=== PATIENT | female | born 1985 | race American Indian/Alaskan Native ===

== ENCOUNTER 2017-06-01 17:59 | Outpatient (CLI) | payer OTHER ==
[2017-06-01 18:43] VITALS: BP 133/84
== END 2017-06-01 18:50 | disposition home or self-care (01) ==
LOC: TRG 17:59
PROVIDERS: ATTEND Obstetrics & Gynecology
DX: Z34.93 Encounter for supervision of normal pregnancy, unspecified, third trimester (principal); Z3A.31 31 weeks gestation of pregnancy
CPT/HCPCS: 59025

== ENCOUNTER 2017-07-21 19:32 | Inpatient (IN) | payer OTHER ==
[2017-07-21] MEDS ORDERED: XYLOCAINE 2% INFILTRATI ONE (20:42)
[2017-07-21] MEDS ORDERED: ZOFRAN IV PRN (20:42)
[2017-07-21] MEDS ORDERED: BRETHINE SUB-Q PRN (20:42)
[2017-07-21] MEDS ORDERED: BRETHINE IVP PRN (20:42)
[2017-07-21] MEDS ORDERED: PHENERGAN PO PRN (20:42)
[2017-07-21] MEDS ORDERED: MINERAL OIL PO PRN (20:42)
[2017-07-21] MEDS ORDERED: STADOL IV PRN (20:42)
[2017-07-21] MEDS ORDERED: ePHEDrine SULFATE IV PRN (20:42)
--- NOTE | 2017-07-21 20:42 | History and Physical Report ---
History of Present Illness Date of examination: 07/21/17 Date of admission: 07/21/17 19:32 Chief complaint: Induction of labor History of present illness: Pt is a 31yo BF EDC 08/01/17; EGA 38 3/7 weeks presents from [facility] for induction of labor due to Oligohydramnios. She was also followed by [facility] for Morbid Obesity and Uterine fibroids, and received care with [facility] since 16 weeks. records are available and GBS is Negative. Past History Past Medical History: other (Morbid Obesity) Past Surgical History: no surgical history [employer] History: fibroids Family/Genetic History: diabetes, hypertension, cancer Social history: no significant social history, - Obstetrical History Expected Date of Delivery: 08/01/17 Actual Gestation: 38 Week(s) 3 Day(s) : 2 Medications and Allergies Allergies Allergy/AdvReac Type Severity Reaction Status Date / Time No Known Allergies Allergy Verified 05/02/16 07:05 Home Medications Medication Instructions Recorded Confirmed Last Taken Type Pnv,Calcium 72/Iron/Folic Acid 1 each PO DAILY 05/04/16 06/01/17 1 Day Ago History [Preplus Ca-Fe 27 mg-FA 1 mg Tb] ~05/03/16 Review of Systems All systems: negative - Physical Exam Breasts: Positive: deferred Cardiovascular: Regular rate Lungs: Positive: Clear to auscultation Abdomen: Positive: normal appearance Genitourinary (Female): Positive: normal external genitalia Uterus: Positive: enlarged Extremities: Positive: normal - Obstetrical FHR: category 1 Uterine Contraction Monitor Mode: External Cervical Dilatation: 1 Cervical Effacement Percentage: 50 station: -3 Uterine Contraction Pattern: Absent Results All other labs normal. Ultrasound: report reviewed Assessment and Plan - Patient Problems (1) 38 weeks gestation of Onset Date: 07/21/17 Current Visit: Yes Status: Acute Plan to address problem: A: IUP @ 38 3/7 weeks Oligohydramnios Morbid Obesity Uterine fibroids P: Admit to L&D for cervidel/pitocin induction of labor (2) Morbid obesity Onset Date: 07/21/17 Current Visit: Yes Status: Acute (3) Oligohydramnios without rupture of membranes in third trimester Onset Date: 07/21/17 Current Visit: Yes Status: Acute Qualifiers: Fetus number: single or unspecified fetus Qualified Code(s): O41.03X0 - Oligohydramnios, third trimester, not applicable or unspecified
[2017-07-21] MEDS ORDERED: PITOCin/NS 30 UNIT/500ML 30 UNITS/500 ML BAG IV SCH (21:00)
[2017-07-21] MEDS ORDERED: PITOCin/NS 20 UNIT/1000ML DRIP 20 UNITS/1,000 ML BAG IV SCH (21:00)
[2017-07-21] MEDS ORDERED: CERVIDIL VG ONE ×2 (21:36→21:50)
[2017-07-21 21:41] LABS: Hematocrit 32.5 % (30.3-42.9); Hemoglobin 10.6 gm/dl (10.1-14.3); Mean Corpuscular HGB Conc 33 % (30-34); Mean Corpuscular Hemoglobin 28 pg (28-32); Mean Corpuscular Volume 84 fl (79-97); Platelet Count 209 K/mm3 (140-440); Red Blood Count 3.85 M/mm3 (3.65-5.03); Red Cell Distribution Width 16.3 % (13.2-15.2)
[2017-07-21 22:00] LABS: Alanine Aminotransferase 8 units/L (7-56); Albumin 3.6 g/dL (3.9-5); BUN/Creatinine Ratio 15; Blood Urea Nitrogen 6 mg/dL (7-17); Calcium 8.8 mg/dL (8.4-10.2); Hemolysis Index 27
--- NOTE | 2017-07-22 09:23 | Progress Note ---
Assessment and Plan - Patient Problems (1) 38 weeks gestation of Onset Date: 07/21/17 Current Visit: Yes Status: Acute Plan to address problem: A: IUP @ 38 3/7 weeks Oligohydramnios Morbid Obesity Uterine fibroids P: Continue with cervidel/pitocin induction of labor (2) Morbid obesity Onset Date: 07/21/17 Current Visit: Yes Status: Acute (3) Oligohydramnios without rupture of membranes in third trimester Onset Date: 07/21/17 Current Visit: Yes Status: Acute Qualifiers: Fetus number: single or unspecified fetus Qualified Code(s): O41.03X0 - Oligohydramnios, third trimester, not applicable or unspecified Subjective - Subjective Date of service: 07/22/17 Principal diagnosis: IUP @ 38 4/7 weeks; Oligohydramnios Interval history: Pt is a 31yo BF EDC 08/01/17; EGA 38 4/7 weeks presents from [facility] for induction of labor due to Oligohydramnios. She received cervidil last night, and is currently having irregular contractions. Patient reports: movement normal, contractions, no new complaints, no loss of fluid, no vaginal bleeding Objective - Exam Abdomen: Present: normal appearance, soft FHR: category 1 Uterine Contraction Monitor Mode: External Uterine Contraction Pattern: Irregular - Labs Labs: Abnormal Labs 07/21/17 07/21/17 21:30 21:30 RDW 16.3 H Carbon Dioxide 20 L BUN 6 L Creatinine 0.4 L Glucose 104 H Alkaline Phosphatase 140 H Albumin 3.6 L Laboratory Results - last 24 hr 07/21/17 07/21/17 07/21/17 21:30 21:30 21:30 WBC 8.5 RBC 3.85 Hgb 10.6 Hct 32.5 MCV 84 MCH 28 MCHC 33 RDW 16.3 H Plt Count 209 Sodium 137 Potassium 4.1 Chloride 101.0 Carbon Dioxide 20 L Anion Gap 20 BUN 6 L Creatinine 0.4 L Estimated GFR > 60 BUN/Creatinine Ratio 15 Glucose 104 H Calcium 8.8 Total Bilirubin 0.20 AST 13 ALT 8 Alkaline Phosphatase 140 H Total Protein 6.8 Albumin 3.6 L Albumin/Globulin Ratio 1.1 Blood Type A POSITIVE Antibody Screen Negative
[2017-07-22] MEDS: LACTATED RINGERS 1,000 ML IV SCH ×2 (13:37→23:44)
[2017-07-22] MEDS: PITOCin/NS 30 UNIT/500ML 30 UNITS/500 ML BAG IV SCH (13:40)
--- NOTE | 2017-07-22 18:28 | Progress Note ---
Assessment and Plan - Patient Problems (1) 38 weeks gestation of Onset Date: 07/21/17 Current Visit: Yes Status: Acute Plan to address problem: A: IUP @ 38 3/7 weeks Oligohydramnios Morbid Obesity Uterine fibroids P: Will discontinue pitocin and place another cervidil tonight. (2) Morbid obesity Onset Date: 07/21/17 Current Visit: Yes Status: Acute (3) Oligohydramnios without rupture of membranes in third trimester Onset Date: 07/21/17 Current Visit: Yes Status: Acute Qualifiers: Fetus number: single or unspecified fetus Qualified Code(s): O41.03X0 - Oligohydramnios, third trimester, not applicable or unspecified Subjective - Subjective Date of service: 07/22/17 Principal diagnosis: IUP @ 38 4/7 weeks; Oligohydramnios Interval history: Pt is a 31yo BF EDC 08/01/17; EGA 38 4/7 weeks presents from [facility] for induction of labor due to Oligohydramnios. She received cervidil followed by pitocin, and currently on 20mu/min and satya q 3-4 mins without cervical change. Patient reports: movement normal, contractions, no new complaints, no loss of fluid, no vaginal bleeding Objective - Exam FHR: category 1 Uterine Contraction Monitor Mode: External Uterine Contraction Pattern: Regular Uterine Tone Measurement Phase: Contraction Uterine Contraction Intensity: Mild - Labs Labs: Abnormal Labs 07/21/17 07/21/17 21:30 21:30 RDW 16.3 H Carbon Dioxide 20 L BUN 6 L Creatinine 0.4 L Glucose 104 H Alkaline Phosphatase 140 H Albumin 3.6 L Laboratory Results - last 24 hr 07/21/17 07/21/17 07/21/17 21:30 21:30 21:30 WBC 8.5 RBC 3.85 Hgb 10.6 Hct 32.5 MCV 84 MCH 28 MCHC 33 RDW 16.3 H Plt Count 209 Sodium 137 Potassium 4.1 Chloride 101.0 Carbon Dioxide 20 L Anion Gap 20 BUN 6 L Creatinine 0.4 L Estimated GFR > 60 BUN/Creatinine Ratio 15 Glucose 104 H Calcium 8.8 Total Bilirubin 0.20 AST 13 ALT 8 Alkaline Phosphatase 140 H Total Protein 6.8 Albumin 3.6 L Albumin/Globulin Ratio 1.1 RPR Nonreactive Blood Type Antibody Screen 07/21/17 21:30 WBC RBC Hgb Hct MCV MCH MCHC RDW Plt Count Sodium Potassium Chloride Carbon Dioxide Anion Gap BUN Creatinine Estimated GFR BUN/Creatinine Ratio Glucose Calcium Total Bilirubin AST ALT Alkaline Phosphatase Total Protein Albumin Albumin/Globulin Ratio RPR Blood Type A POSITIVE Antibody Screen Negative
[2017-07-22] MEDS ORDERED: CERVIDIL VG ONE (19:30)
[2017-07-22] MEDS ORDERED: NACL 0.9% 1000 ML 1,000 ML ONE (20:44)
--- NOTE | 2017-07-23 08:24 | Progress Note ---
Assessment and Plan - Patient Problems (1) 38 weeks gestation of Onset Date: 07/21/17 Current Visit: Yes Status: Acute Plan to address problem: A: IUP @ 38 5/7 weeks Oligohydramnios Morbid Obesity Uterine fibroids P: Will restart pitocin induction of labor. (2) Morbid obesity Onset Date: 07/21/17 Current Visit: Yes Status: Acute (3) Oligohydramnios without rupture of membranes in third trimester Onset Date: 07/21/17 Current Visit: Yes Status: Acute Qualifiers: Fetus number: single or unspecified fetus Qualified Code(s): O41.03X0 - Oligohydramnios, third trimester, not applicable or unspecified Subjective - Subjective Date of service: 07/23/17 Principal diagnosis: IUP @ 38 5/7 weeks; Oligohydramnios Interval history: Pt is a 31yo BF EDC 08/01/17; EGA 38 5/7 weeks presented from [facility] for induction of labor due to Oligohydramnios. She received cervidil followed by pitocin yesterday, and cervidil again last night and having rare contractions without cervical change. Patient reports: movement normal, contractions, no new complaints, no loss of fluid, no vaginal bleeding Objective - Vital Signs Vital Signs: Vital Signs - 12hr 07/23/17 07/23/17 00:05 07:18 Temperature 97.6 F 97.2 F L Respiratory 20 18 Rate - Exam Breasts: deferred Cardiovascular: Regular rate Lungs: Clear to auscultation Abdomen: Present: normal appearance, soft Uterus: Present: normal FHR: category 1 Uterine Contraction Monitor Mode: External Uterine Contraction Pattern: Absent - Labs Labs: Abnormal Labs 07/21/17 07/21/17 21:30 21:30 RDW 16.3 H Carbon Dioxide 20 L BUN 6 L Creatinine 0.4 L Glucose 104 H Alkaline Phosphatase 140 H Albumin 3.6 L Laboratory Results - last 24 hr 07/21/17 21:30 RPR Nonreactive
[2017-07-23] MEDS: PITOCin/NS 30 UNIT/500ML 30 UNITS/500 ML BAG IV SCH (09:51)
[2017-07-23] MEDS: LACTATED RINGERS 1,000 ML IV SCH (09:51)
[2017-07-23] MEDS: SUBLIMAZE IV PRN (14:17)
[2017-07-23] MEDS: NORMOSOL-R PH 7.4 1,000 ML IV SCH (18:16)
[2017-07-24] MEDS: NORMOSOL-R PH 7.4 1,000 ML IV SCH ×4 (04:19→20:46)
[2017-07-24] MEDS ORDERED: ANCEF IV SCH (06:00)
--- NOTE | 2017-07-24 10:55 | Progress Note ---
Assessment and Plan - Patient Problems (1) 38 weeks gestation of Onset Date: 07/21/17 Current Visit: Yes Status: Acute Plan to address problem: A: IUP @ 38 6/7 weeks Oligohydramnios Morbid Obesity Uterine fibroids P: Will continue with pitocin induction of labor. (2) Morbid obesity Onset Date: 07/21/17 Current Visit: Yes Status: Acute (3) Oligohydramnios without rupture of membranes in third trimester Onset Date: 07/21/17 Current Visit: Yes Status: Acute Qualifiers: Fetus number: single or unspecified fetus Qualified Code(s): O41.03X0 - Oligohydramnios, third trimester, not applicable or unspecified Subjective - Subjective Date of service: 07/24/17 Principal diagnosis: IUP @ 38 6/7 weeks; Oligohydramnios Interval history: Pt is a 31yo BF EDC 08/01/17; EGA 38 6/7 weeks presented from [facility] for induction of labor due to Oligohydramnios. She received cervidil followed by pitocin yesterday, and cervidil and pitocin again last night and having contractions q 4-5 mins on pitocin 20mu/min. Patient reports: movement normal, contractions, no new complaints, no loss of fluid, no vaginal bleeding Objective - Vital Signs Vital Signs: Vital Signs - 12hr 07/24/17 07/24/17 07/24/17 06:15 07:46 10:06 Temperature 97.1 F L 97.6 F 98.0 F Pulse Rate 99 H 96 H Respiratory 16 16 Rate Blood Pressure 134/73 115/57 [Right] - Exam Cardiovascular: Regular rate Lungs: Clear to auscultation Abdomen: Present: normal appearance, soft FHR: category 1 Uterine Contraction Monitor Mode: External Cervical Dilatation: 1.5 Cervical Effacement Percentage: 50 station: -3 Uterine Contraction Pattern: Regular Uterine Tone Measurement Phase: Contraction Uterine Contraction Intensity: Mild - Labs Labs: Abnormal Labs 07/21/17 07/21/17 21:30 21:30 RDW 16.3 H Carbon Dioxide 20 L BUN 6 L Creatinine 0.4 L Glucose 104 H Alkaline Phosphatase 140 H Albumin 3.6 L
[2017-07-24 11:28] LABS: Hematocrit 30.4 % (30.3-42.9); Mean Corpuscular HGB Conc 33 % (30-34); Mean Corpuscular Hemoglobin 28 pg (28-32); Mean Corpuscular Volume 84 fl (79-97); Platelet Count 189 K/mm3 (140-440)
[2017-07-24] MEDS: SUBLIMAZE IV PRN (12:46)
[2017-07-24] MEDS ORDERED: NARCAN 2 MG/2 ML IV PRN (15:01)
[2017-07-24] MEDS ORDERED: ePHEDrine SULFATE IV PRN (15:01)
--- NOTE | 2017-07-24 15:01 | Anesthesia Consultation ---
Anesthesia Consult and Med Hx Date of service: 07/24/17 - Airway Anesthetic Teeth Evaluation: Good ROM Head & Neck: Adequate Mental/Hyoid Distance: Adequate Mallampati Class: Class II Intubation Access Assessment: Probably Good - Pulmonary Hx Asthma: No COPD: No Hx Pneumonia: No - Cardiovascular System Hx Hypertension: No - Central Nervous System Hx Seizures: No Hx Psychiatric Problems: No - Endocrine Hx Renal Disease: No Hx End Stage Renal Disease: No Hx Hypothyroidism: No Hx Hyperthyroidism: No - Hematic Hx Anemia: No Hx Sickle Cell Disease: No - Other Systems Hx Alcohol Use: Yes Hx Obesity: Yes (morbid, BMI 48.6)
[2017-07-24] MEDS ORDERED: fentaNYL-BUPIV 2 MCG/ML-0.125% 200 MCG/100 ML BAG EPIDURAL SCH (16:00)
--- NOTE | 2017-07-24 16:08 | Progress Note ---
Assessment and Plan - Patient Problems (1) 38 weeks gestation of Onset Date: 07/21/17 Current Visit: Yes Status: Acute Plan to address problem: A: IUP @ 38 6/7 weeks Oligohydramnios Morbid Obesity Uterine fibroids P: Will continue with pitocin induction of labor. Proceed with epidural IUPC placed for amnioinfusion Expectant vaginal delivery (2) Morbid obesity Onset Date: 07/21/17 Current Visit: Yes Status: Acute (3) Oligohydramnios without rupture of membranes in third trimester Onset Date: 07/21/17 Current Visit: Yes Status: Acute Qualifiers: Fetus number: single or unspecified fetus Qualified Code(s): O41.03X0 - Oligohydramnios, third trimester, not applicable or unspecified Subjective - Subjective Date of service: 07/24/17 Principal diagnosis: IUP @ 38 6/7 weeks; Oligohydramnios Interval history: Pt is a 31yo BF EDC 08/01/17; EGA 38 6/7 weeks presented from [facility] for induction of labor due to Oligohydramnios. She received cervidil followed by pitocin yesterday, and cervidil and pitocin again last night and having contractions q 4-5 mins on pitocin 20mu/min. Pt now having variable decelerations. Patient reports: movement normal, contractions, no new complaints, no vaginal bleeding Objective - Vital Signs Vital Signs: Vital Signs - 12hr 07/24/17 07/24/17 07/24/17 06:15 06:19 07:39 Temperature 97.1 F L Pulse Rate 99 H 99 H 97 H Respiratory 16 Rate Blood Pressure 134/73 Blood Pressure 134/73 [Right] O2 Sat by Pulse 100 Oximetry 07/24/17 07/24/17 07/24/17 07:41 07:44 07:46 Temperature 97.6 F Pulse Rate 98 H 96 H 96 H Respiratory 16 Rate Blood Pressure 115/57 Blood Pressure 115/57 [Right] O2 Sat by Pulse 99 Oximetry 07/24/17 07/24/17 07/24/17 07:49 08:36 08:41 Temperature Pulse Rate 94 H 101 H 98 H Respiratory Rate Blood Pressure Blood Pressure [Right] O2 Sat by Pulse 98 98 98 Oximetry 07/24/17 07/24/17 07/24/17 08:46 09:00 09:05 Temperature Pulse Rate 92 H 89 88 Respiratory Rate Blood Pressure Blood Pressure [Right] O2 Sat by Pulse 99 100 99 Oximetry 07/24/17 07/24/17 07/24/17 09:10 09:15 09:20 Temperature Pulse Rate 91 H 98 H 95 H Respiratory Rate Blood Pressure Blood Pressure [Right] O2 Sat by Pulse 100 100 100 Oximetry 07/24/17 07/24/17 07/24/17 09:25 09:30 09:35 Temperature Pulse Rate 91 H 94 H 99 H Respiratory Rate Blood Pressure Blood Pressure [Right] O2 Sat by Pulse 99 98 98 Oximetry 07/24/17 07/24/17 07/24/17 09:40 09:45 09:50 Temperature Pulse Rate 95 H 95 H 93 H Respiratory Rate Blood Pressure Blood Pressure [Right] O2 Sat by Pulse 100 100 98 Oximetry 07/24/17 07/24/17 07/24/17 09:55 10:00 10:05 Temperature Pulse Rate 96 H 89 98 H Respiratory Rate Blood Pressure Blood Pressure [Right] O2 Sat by Pulse 99 100 98 Oximetry 07/24/17 07/24/17 07/24/17 10:06 10:10 10:15 Temperature 98.0 F Pulse Rate 96 H 88 Respiratory Rate Blood Pressure Blood Pressure [Right] O2 Sat by Pulse 99 100 Oximetry 07/24/17 07/24/17 07/24/17 10:19 10:20 10:25 Temperature Pulse Rate 55 L 94 H 96 H Respiratory Rate Blood Pressure Blood Pressure [Right] O2 Sat by Pulse 93 100 100 Oximetry 07/24/17 07/24/17 07/24/17 10:30 10:35 10:40 Temperature Pulse Rate 100 H 96 H 95 H Respiratory Rate Blood Pressure Blood Pressure [Right] O2 Sat by Pulse 100 100 100 Oximetry 07/24/17 07/24/17 07/24/17 10:45 10:56 11:01 Temperature Pulse Rate 105 H 98 H 92 H Respiratory Rate Blood Pressure Blood Pressure [Right] O2 Sat by Pulse 100 99 100 Oximetry 07/24/17 07/24/17 07/24/17 11:06 11:11 11:16 Temperature Pulse Rate 95 H 107 H 101 H Respiratory Rate Blood Pressure Blood Pressure [Right] O2 Sat by Pulse 99 100 100 Oximetry 03/09/18 03/09/18 03/09/18 11:18 11:21 11:26 Temperature Pulse Rate 101 H 95 H 96 H Respiratory Rate Blood Pressure Blood Pressure [Right] O2 Sat by Pulse 86 100 99 Oximetry 07/24/17 07/24/17 07/24/17 11:31 11:36 11:43 Temperature Pulse Rate 99 H 96 H 96 H Respiratory Rate Blood Pressure Blood Pressure [Right] O2 Sat by Pulse 100 97 100 Oximetry 07/24/17 07/24/17 07/24/17 11:45 11:48 11:51 Temperature 97.7 F Pulse Rate 100 H 101 H 97 H Respiratory 18 Rate Blood Pressure 138/85 Blood Pressure 138/85 [Right] O2 Sat by Pulse 100 Oximetry 07/24/17 07/24/17 07/24/17 11:53 11:58 12:18 Temperature Pulse Rate 100 H 108 H 99 H Respiratory Rate Blood Pressure Blood Pressure [Right] O2 Sat by Pulse 99 100 100 Oximetry 07/24/17 07/24/17 07/24/17 12:23 12:28 12:33 Temperature Pulse Rate 104 H 101 H 107 H Respiratory Rate Blood Pressure Blood Pressure [Right] O2 Sat by Pulse 99 100 99 Oximetry 07/24/17 07/24/17 07/24/17 12:37 12:38 12:43 Temperature Pulse Rate 100 H 105 H 100 H Respiratory Rate Blood Pressure Blood Pressure [Right] O2 Sat by Pulse 94 86 99 Oximetry 07/24/17 07/24/17 07/24/17 12:44 12:48 12:53 Temperature Pulse Rate 106 H 104 H 101 H Respiratory Rate Blood Pressure Blood Pressure [Right] O2 Sat by Pulse 94 100 99 Oximetry 07/24/17 07/24/17 07/24/17 12:58 13:00 13:03 Temperature Pulse Rate 115 H 107 H 106 H Respiratory Rate Blood Pressure Blood Pressure [Right] O2 Sat by Pulse 98 94 99 Oximetry 07/24/17 07/24/17 07/24/17 13:08 13:21 13:26 Temperature Pulse Rate 101 H 105 H 103 H Respiratory Rate Blood Pressure Blood Pressure [Right] O2 Sat by Pulse 99 99 100 Oximetry 07/24/17 07/24/17 07/24/17 13:31 13:34 13:36 Temperature Pulse Rate 102 H 99 H 105 H Respiratory Rate Blood Pressure Blood Pressure [Right] O2 Sat by Pulse 97 94 100 Oximetry 07/24/17 07/24/17 07/24/17 13:41 13:46 13:48 Temperature Pulse Rate 105 H 106 H 103 H Respiratory Rate Blood Pressure Blood Pressure [Right] O2 Sat by Pulse 95 96 94 Oximetry 07/24/17 07/24/17 07/24/17 13:51 13:54 13:56 Temperature Pulse Rate 104 H 103 H 110 H Respiratory Rate Blood Pressure Blood Pressure [Right] O2 Sat by Pulse 95 91 96 Oximetry 07/24/17 07/24/17 07/24/17 14:01 14:04 14:06 Temperature Pulse Rate 105 H 107 H 111 H Respiratory Rate Blood Pressure Blood Pressure [Right] O2 Sat by Pulse 100 90 100 Oximetry 07/24/17 07/24/17 07/24/17 14:11 14:25 14:30 Temperature 97.9 F Pulse Rate 106 H 104 H Respiratory Rate Blood Pressure Blood Pressure [Right] O2 Sat by Pulse 94 91 Oximetry 07/24/17 07/24/17 07/24/17 14:35 14:40 14:45 Temperature Pulse Rate 110 H 108 H 111 H Respiratory Rate Blood Pressure Blood Pressure [Right] O2 Sat by Pulse 96 100 98 Oximetry 07/24/17 07/24/17 07/24/17 14:50 14:53 14:55 Temperature Pulse Rate 118 H 119 H 120 H Respiratory Rate Blood Pressure Blood Pressure [Right] O2 Sat by Pulse 99 92 100 Oximetry 07/24/17 07/24/17 07/24/17 15:00 15:03 15:05 Temperature Pulse Rate 112 H 118 H 121 H Respiratory Rate Blood Pressure 131/62 Blood Pressure [Right] O2 Sat by Pulse 99 100 Oximetry 07/24/17 07/24/17 07/24/17 15:10 15:15 15:20 Temperature Pulse Rate 119 H 125 H 123 H Respiratory Rate Blood Pressure Blood Pressure [Right] O2 Sat by Pulse 94 99 99 Oximetry 07/24/17 07/24/17 07/24/17 15:21 15:23 15:25 Temperature Pulse Rate 116 H 116 H 115 H Respiratory Rate Blood Pressure 139/73 135/71 137/67 Blood Pressure [Right] O2 Sat by Pulse 99 Oximetry 07/24/17 07/24/17 07/24/17 15:27 15:29 15:30 Temperature Pulse Rate 112 H 114 H 115 H Respiratory Rate Blood Pressure 126/58 137/65 Blood Pressure [Right] O2 Sat by Pulse 100 Oximetry 07/24/17 07/24/17 07/24/17 15:31 15:34 15:36 Temperature Pulse Rate 113 H 118 H 122 H Respiratory Rate Blood Pressure 134/64 139/60 111/56 Blood Pressure [Right] O2 Sat by Pulse 100 Oximetry 07/24/17 07/24/17 07/24/17 15:37 15:39 15:41 Temperature Pulse Rate 115 H 118 H 114 H Respiratory Rate Blood Pressure 109/54 104/54 108/55 Blood Pressure [Right] O2 Sat by Pulse 100 Oximetry 07/24/17 07/24/17 07/24/17 15:43 15:46 15:51 Temperature Pulse Rate 120 H 119 H 120 H Respiratory Rate Blood Pressure 106/53 Blood Pressure [Right] O2 Sat by Pulse 100 99 Oximetry 07/24/17 07/24/17 07/24/17 15:56 16:01 16:06 Temperature Pulse Rate 116 H 133 H 116 H Respiratory Rate Blood Pressure 114/56 Blood Pressure [Right] O2 Sat by Pulse 100 100 100 Oximetry - Exam Uterine Contraction Monitor Mode: External Cervical Dilatation: 2.5 Cervical Effacement Percentage: 70 station: -2 Uterine Contraction Pattern: Regular Uterine Contraction Intensity: Moderate - Labs Labs: Abnormal Labs 07/21/17 07/21/17 07/24/17 21:30 21:30 10:51 RBC 3.60 L Hgb 10.0 L RDW 16.3 H 16.0 H Carbon Dioxide 20 L BUN 6 L Creatinine 0.4 L Glucose 104 H Alkaline Phosphatase 140 H Albumin 3.6 L Laboratory Results - last 24 hr 07/24/17 07/24/17 07/24/17 10:49 10:51 10:51 WBC 8.5 RBC 3.60 L Hgb 10.0 L Hct 30.4 MCV 84 MCH 28 MCHC 33 RDW 16.0 H Plt Count 189 Hep Bs Antigen Non-reactive Blood Type A POSITIVE Antibody Screen Negative
[2017-07-24] MEDS ORDERED: NACL 0.9% 1000 ML 1,000 ML VG SCH (17:00)
[2017-07-24] MEDS ORDERED: PEPCID IV ONE ×2 (20:16→20:45)
[2017-07-24] MEDS ORDERED: BICITRA PO ONE ×2 (20:16→20:45)
[2017-07-24] MEDS ORDERED: PITOCin/NS 20 UNIT/1000ML DRIP 20,000 MILLIUNITS/1,000 ML BAG IV ONE (20:41)
[2017-07-24] MEDS: REGLAN IV SCH ×2 (20:50→20:52)
[2017-07-24] MEDS ORDERED: NORMOSOL-R PH 7.4 1,000 ML IV SCH (21:00)
[2017-07-24] MEDS ORDERED: PITOCin/NS 20 UNIT/1000ML DRIP 20 UNITS/1,000 ML BAG IV SCH ×3 (21:00→23:00)
[2017-07-24] MEDS ORDERED: ANCEF/STERILE WATER 2 GM/20 ML 2 GM/20 ML SYRINGE IV NR (21:00)
[2017-07-24] MEDS ORDERED: XYLOCAINE MPF 2% ONE ×2 (21:51→22:01)
[2017-07-24] MEDS ORDERED: NEO SYNEPHRINE ONE (21:52)
[2017-07-24] MEDS ORDERED: ASTRAMORPH PF 10MG/10ML ONE (21:56)
[2017-07-24] MEDS ORDERED: ZOFRAN ONE (22:00)
[2017-07-24] MEDS ORDERED: REGLAN ONE (22:01)
--- NOTE | 2017-07-24 22:19 | Operative Report ---
Operative Report Operative Report: Date of procedure: 07/24/2017 Pre-operative diagnosis: 1. Intrauterine at 38-6/7 weeks 2. Oligohydramnios 3. Morbid obesity 4. Uterine fibroids 5. Failure to progress 6. Failed induction of labor Post-operative diagnosis: Same Procedure name(s): Primary low transverse section Surgeon: Filippo Alcazar MD Professor Of Journalism: None Anesthesia: Epidural anesthesia by Dr. Núñez EBL: 700 mls Findings: A 3180 g male Apgars 8 at 1 minute 9 at 5 minutes. Clear amniotic fluid. Uterus with large fibroid on the right uterine body. Normal tubes and ovaries bilaterally Procedure: After the patient was prepped and draped in usual sterile fashion, and after satisfactory level of epidural anesthesia was obtained, the skin knife was used to make a transverse skin incision. The incision was excised down to layer of the fascia, which was nicked in the midline and extended laterally using the Bovie cautery. The rectus muscles were dissected off the rectus fascia both superiorly and inferiorly. The rectus bellies in the midline, and the peritoneum was entered under direct visualization. The peritoneal incision was extended superiorly and inferiorly. A bladder flap was created and the bladder blade was then placed. The uterus was scored in a curvilinear linear fashion, entered in the midline revealing clear amniotic fluid. The infant's head was delivered onto the surgical field, and the oropharynx and nasopharynx were bulb suctioned. The rest of the 's body was delivered, cord was doubly clamped and cut and the infant was handed to the waiting respiratory team. The placenta was manually removed from the uterus, and the uterus removed from its normal anatomical position, and found to have a large fibroid in the right side of the uterine body. After gentle uterine lavage, the incision was inspected and found to be without extensions. It was then closed in 2 layers using 0 Vicryl suture in a running interlocking fashion , the second layer imbricating the first. After good hemostasis was achieved, copious amounts or irrigation was performed, and the gutters were suctioned free of blood and blood clots. Tisseel sealant was sprayed across the uterine incision. The uterus was then returned to its normal anatomical position, and after excellent hemostasis assured, the peritoneum was re-approximated using 3- 0 Vicryl suture in a running interlocking fashion, and then the rectus muscles were re-approximated using 3-0 Vicryl suture in a [id number] configuration. The fascia was then re-approximated using 0 Vicryl suture in running interlocking fashion. The subcutaneous layer was made hemostatic using Bovie cautery, the Tisseel sealant was sprayed across the fascial incision and the skin edges re-approximated using 4-0 Vicryl suture in a sub-cuticular fashion. Patient tolerated the procedure well was transported to recovery in stable condition.
[2017-07-24] MEDS ORDERED: NORCO 5/325 PO PRN (22:25)
[2017-07-24] MEDS ORDERED: MYLICON PO PRN ×2 (22:25→23:19)
[2017-07-24] MEDS ORDERED: MILK OF MAGNESIA PO PRN (22:25)
[2017-07-24] MEDS ORDERED: LANSINOH TP PRN ×2 (22:25→23:11)
[2017-07-24] MEDS ORDERED: PERCOCET 5/325 PO PRN ×2 (22:25→23:19)
[2017-07-24] MEDS ORDERED: NARCAN 0.4 MG/1 ML IV PRN ×2 (22:25→23:19)
[2017-07-24] MEDS ORDERED: TYLENOL PO PRN ×2 (22:25→23:09)
[2017-07-24] MEDS ORDERED: MOTRIN PO PRN (22:25)
[2017-07-24] MEDS ORDERED: TORADOL IV PRN (22:25)
[2017-07-24] MEDS ORDERED: TUCKS PAD TP PRN ×2 (22:25→23:10)
[2017-07-24] MEDS ORDERED: MORPHINE IV PRN (22:33)
[2017-07-24] MEDS ORDERED: SODIUM CHLORIDE FLUSH SYRINGE 10 ML IV NR ×2 (23:00)
[2017-07-24] MEDS ORDERED: D5LR 1,000 ML IV SCH ×2 (23:00)
[2017-07-24] MEDS ORDERED: METHERGINE PO SCH (23:00)
[2017-07-24] MEDS: METHERGINE PO SCH (23:00)
[2017-07-24] MEDS: TORADOL IV PRN (23:40)
[2017-07-25] MEDS: ceFAZolin 1 GM in NACL 0.9% 20 ML IV SCH ×2 (05:08→14:00)
[2017-07-25] MEDS: TORADOL IV PRN (05:08)
[2017-07-25] MEDS: METHERGINE PO SCH ×2 (05:13→13:52)
[2017-07-25] MEDS ORDERED: ANCEF/NS 1 GM/50 ML 1 GM/50 ML BAG IV SCH (06:00)
[2017-07-25] MEDS ORDERED: BOOSTRIX IM ONE ×2 (06:00→22:26)
--- NOTE | 2017-07-25 09:54 | Progress Note ---
Assessment and Plan - Patient Problems (1) 38 weeks gestation of Onset Date: 07/21/17 Current Visit: Yes Status: Resolved (2) Morbid obesity Onset Date: 07/21/17 Current Visit: Yes Status: Chronic (3) Oligohydramnios without rupture of membranes in third trimester Onset Date: 07/21/17 Current Visit: Yes Status: Resolved Qualifiers: Fetus number: single or unspecified fetus Qualified Code(s): O41.03X0 - Oligohydramnios, third trimester, not applicable or unspecified (4) Status post Onset Date: 07/25/17 Current Visit: Yes Status: Resolved Plan to address problem: A: S/P C Section - POD #1 Doing well Asymptomatic anemia - stable P: Continue RPOC Anticipate discharge in 24-48hrs (5) Acute blood loss anemia Onset Date: 07/25/17 Current Visit: Yes Status: Resolved Subjective - Subjective Date of service: 07/25/17 Principal diagnosis: s/p C Section - POD #1 Interval history: Pt is feeling well without complaints except pain. Tolerating a liquid diet without nausea or vomiting. Patient reports: appetite normal, voiding normally, pain poorly controlled, ambulating normally, no flatus, no nauseated [place]: doing well, nursing well Objective - Vital Signs Latest vital signs: Vital Signs Temp Pulse Resp BP BP Pulse Ox 07/25/17 04:00 98.6 F 69 16 130/71 07/25/17 01:30 98.6 F 61 16 132/72 07/25/17 00:04 98.6 F 07/24/17 23:50 124 H 12 138/75 99 07/24/17 23:40 122 H 29 H 155/78 98 07/24/17 23:30 120 H 25 H 146/79 99 07/24/17 23:21 124 H 15 125/70 98 07/24/17 23:10 120 H 11 L 148/78 99 07/24/17 23:00 118 H 18 142/66 100 07/24/17 22:50 121 H 27 H 145/74 97 07/24/17 22:40 122 H 27 H 144/74 100 07/24/17 22:30 125 H 15 142/58 100 07/24/17 22:26 129 H 15 100 07/24/17 21:00 99.1 F 122 H 20 100 07/24/17 20:31 125 H 134/69 07/24/17 19:30 123 H 131/70 07/24/17 19:27 122 H 129/68 07/24/17 19:26 121 H 100 07/24/17 19:21 124 H 99 07/24/17 19:16 127 H 99 07/24/17 19:11 125 H 100 07/24/17 19:06 122 H 100 07/24/17 19:01 120 H 100 07/24/17 18:56 122 H 100 07/24/17 18:51 121 H 100 07/24/17 18:46 116 H 100 07/24/17 18:41 118 H 100 07/24/17 18:36 116 H 100 07/24/17 18:31 119 H 100 07/24/17 18:30 116 H 119/59 07/24/17 18:26 118 H 100 07/24/17 18:21 119 H 100 07/24/17 18:16 117 H 100 07/24/17 18:11 116 H 100 07/24/17 18:06 117 H 100 07/24/17 18:01 114 H 100 07/24/17 17:56 115 H 100 07/24/17 17:51 114 H 100 07/24/17 17:46 117 H 100 07/24/17 17:41 119 H 98 07/24/17 17:36 121 H 16 100 07/24/17 17:31 125 H 120/69 100 07/24/17 17:26 122 H 100 07/24/17 17:21 115 H 100 07/24/17 17:16 124 H 100 07/24/17 17:12 117 H 123/69 07/24/17 17:11 109 H 100 07/24/17 17:07 98.4 F 117 H 16 123/69 07/24/17 17:06 123 H 100 07/24/17 17:05 73 85 07/24/17 17:01 115 H 99 07/24/17 16:56 113 H 99 07/24/17 16:51 117 H 99 07/24/17 16:46 115 H 99 07/24/17 16:41 116 H 99 07/24/17 16:36 115 H 97 07/24/17 16:31 122 H 96 07/24/17 16:26 120 H 100 07/24/17 16:21 115 H 99 07/24/17 16:16 123 H 100 07/24/17 16:14 127 H 114/55 90 07/24/17 16:11 129 H 99 07/24/17 16:06 116 H 100 07/24/17 16:01 133 H 114/56 100 07/24/17 15:56 116 H 100 07/24/17 15:51 120 H 99 07/24/17 15:46 119 H 100 07/24/17 15:43 120 H 106/53 07/24/17 15:41 114 H 108/55 100 07/24/17 15:39 118 H 104/54 07/24/17 15:37 115 H 109/54 07/24/17 15:36 122 H 111/56 100 07/24/17 15:34 118 H 139/60 07/24/17 15:31 113 H 134/64 07/24/17 15:30 115 H 100 07/24/17 15:29 114 H 137/65 07/24/17 15:27 112 H 126/58 07/24/17 15:25 115 H 137/67 99 07/24/17 15:23 116 H 135/71 07/24/17 15:21 116 H 139/73 07/24/17 15:20 123 H 99 07/24/17 15:15 125 H 99 07/24/17 15:10 119 H 94 07/24/17 15:05 121 H 100 07/24/17 15:03 118 H 131/62 07/24/17 15:00 112 H 99 07/24/17 14:55 120 H 100 07/24/17 14:53 119 H 92 07/24/17 14:50 118 H 99 07/24/17 14:45 111 H 98 07/24/17 14:40 108 H 100 07/24/17 14:35 110 H 96 07/24/17 14:30 104 H 91 07/24/17 14:25 97.9 F 07/24/17 14:11 106 H 94 07/24/17 14:06 111 H 100 07/24/17 14:04 107 H 90 07/24/17 14:01 105 H 100 07/24/17 13:56 110 H 96 07/24/17 13:54 103 H 91 07/24/17 13:51 104 H 95 07/24/17 13:48 103 H 94 07/24/17 13:46 106 H 96 07/24/17 13:41 105 H 95 07/24/17 13:36 105 H 100 07/24/17 13:34 99 H 94 07/24/17 13:31 102 H 97 07/24/17 13:26 103 H 100 07/24/17 13:21 105 H 99 07/24/17 13:08 101 H 99 07/24/17 13:03 106 H 99 07/24/17 13:00 107 H 94 07/24/17 12:58 115 H 98 07/24/17 12:53 101 H 99 07/24/17 12:48 104 H 100 07/24/17 12:44 106 H 94 07/24/17 12:43 100 H 99 07/24/17 12:38 105 H 86 07/24/17 12:37 100 H 94 07/24/17 12:33 107 H 99 07/24/17 12:28 101 H 100 07/24/17 12:23 104 H 99 07/24/17 12:18 99 H 100 07/24/17 11:58 108 H 100 07/24/17 11:53 100 H 99 07/24/17 11:51 97 H 138/85 07/24/17 11:48 101 H 100 07/24/17 11:45 97.7 F 100 H 18 138/85 07/24/17 11:43 96 H 100 07/24/17 11:36 96 H 97 07/24/17 11:31 99 H 100 07/24/17 11:26 96 H 99 07/24/17 11:21 95 H 100 07/24/17 11:18 101 H 86 07/24/17 11:16 101 H 100 07/24/17 11:11 107 H 100 07/24/17 11:06 95 H 99 07/24/17 11:01 92 H 100 07/24/17 10:56 98 H 99 07/24/17 10:45 105 H 100 07/24/17 10:40 95 H 100 07/24/17 10:35 96 H 100 07/24/17 10:30 100 H 100 07/24/17 10:25 96 H 100 07/24/17 10:20 94 H 100 03/09/18 10:19 55 L 93 07/24/17 10:15 88 100 07/24/17 10:10 96 H 99 07/24/17 10:06 98.0 F 07/24/17 10:05 98 H 98 07/24/17 10:00 89 100 07/24/17 09:55 96 H 99 07/24/17 09:50 93 H 98 Intake and Output 07/24/17 07/25/17 07/25/17 22:59 06:59 14:59 Intake Total 1866.333 300 Output Total 600 400 Balance 1266.333 -100 Intake: IV 1866.333 Normosol-R pH 7.4 1,000 733.333 ml @ 125 mls/hr IV DIRECT MALIKA Rx#:[id number] PITOCin/NS 30 UNIT/500ML 133 30 units In 500 ml @ 4 mls/hr IV TITR MALIKA Rx#: [id number] Intake, Free Water 300 Output: Urine 600 400 Indwelling 300 Void 400 Other: Total, Output Amount 400 Voiding Method Indwelling Catheter # Voids Void 1 Estimated Blood Loss 700 - Exam Breasts: Present: deferred Cardiovascular: Present: Regular rate Lungs: Present: Clear to auscultation Abdomen: Present: normal appearance, soft Uterus: Present: normal, firm, fundal height below umbilicus Extremities: Present: normal Incision: Present: normal, dry, intact, dressed - Labs Labs: Abnormal lab results 07/24/17 Range/Units 10:51 RBC 3.60 L (3.65-5.03) M/mm3 Hgb 10.0 L (10.1-14.3) gm/dl RDW 16.0 H (13.2-15.2) % Laboratory Tests 07/21/17 07/21/17 07/21/17 21:30 21:30 21:30 WBC 8.5 RBC 3.85 Hgb 10.6 Hct 32.5 MCV 84 MCH 28 MCHC 33 RDW 16.3 H Plt Count 209 Sodium 137 Potassium 4.1 Chloride 101.0 Carbon Dioxide 20 L Anion Gap 20 BUN 6 L Creatinine 0.4 L Estimated GFR > 60 BUN/Creatinine Ratio 15 Glucose 104 H Calcium 8.8 Total Bilirubin 0.20 AST 13 ALT 8 Alkaline Phosphatase 140 H Total Protein 6.8 Albumin 3.6 L Albumin/Globulin Ratio 1.1 RPR Nonreactive Hep Bs Antigen Blood Type Antibody Screen 07/21/17 07/24/17 07/24/17 21:30 10:49 10:51 WBC 8.5 RBC 3.60 L Hgb 10.0 L Hct 30.4 MCV 84 MCH 28 MCHC 33 RDW 16.0 H Plt Count 189 Sodium Potassium Chloride Carbon Dioxide Anion Gap BUN Creatinine Estimated GFR BUN/Creatinine Ratio Glucose Calcium Total Bilirubin AST ALT Alkaline Phosphatase Total Protein Albumin Albumin/Globulin Ratio RPR Hep Bs Antigen Blood Type A POSITIVE A POSITIVE Antibody Screen Negative Negative 07/24/17 07/25/17 10:51 11:22 WBC RBC Hgb 7.6 L Hct 24.2 L D MCV MCH MCHC RDW Plt Count Sodium Potassium Chloride Carbon Dioxide Anion Gap BUN Creatinine Estimated GFR BUN/Creatinine Ratio Glucose Calcium Total Bilirubin AST ALT Alkaline Phosphatase Total Protein Albumin Albumin/Globulin Ratio RPR Hep Bs Antigen Non-reactive Blood Type Antibody Screen
[2017-07-25] MEDS ORDERED: M-M-R II VACCINE SUB-Q ONE ×2 (10:00→22:26)
[2017-07-25] MEDS ORDERED: FEOSOL PO SCH (10:00)
[2017-07-25] MEDS ORDERED: PRENATAL VITAMIN PO SCH (10:00)
[2017-07-25] MEDS: MOTRIN PO PRN ×2 (11:15→17:10)
[2017-07-25] MEDS: FEOSOL PO SCH (11:15)
[2017-07-25] MEDS: PRENATAL VITAMIN PO SCH (11:15)
[2017-07-25] MEDS: NORCO 5/325 PO PRN ×2 (11:15→17:10)
[2017-07-25 12:01] LABS: Hematocrit 24.2 % (30.3-42.9); Hemoglobin 7.6 gm/dl (10.1-14.3)
[2017-07-26] MEDS: MOTRIN PO PRN ×3 (00:39→17:35)
--- NOTE | 2017-07-26 08:37 | Progress Note ---
Assessment and Plan - Patient Problems (1) 38 weeks gestation of Onset Date: 07/21/17 Current Visit: Yes Status: Resolved (2) Morbid obesity Onset Date: 07/21/17 Current Visit: Yes Status: Chronic (3) Oligohydramnios without rupture of membranes in third trimester Onset Date: 07/21/17 Current Visit: Yes Status: Resolved Qualifiers: Fetus number: single or unspecified fetus Qualified Code(s): O41.03X0 - Oligohydramnios, third trimester, not applicable or unspecified (4) Status post Onset Date: 07/25/17 Current Visit: Yes Status: Resolved Plan to address problem: A: S/P C Section - POD #2 Doing well Asymptomatic anemia - stable P: May go home tomorrow. (5) Acute blood loss anemia Onset Date: 07/25/17 Current Visit: Yes Status: Resolved Subjective - Subjective Date of service: 07/26/17 Principal diagnosis: s/p C Section - POD #2 Interval history: Pt is feeling well without complaints. She is tolerating a reg diet without nausea or vomiting, ambulating and voiding without difficulty. Denies dizziness or SOB. Patient reports: appetite normal, voiding normally, pain well controlled, flatus , ambulating normally, no dizzy ambulation, no bowel movement, no nauseated : doing well, nursing well, bottle feeding Objective - Vital Signs Latest vital signs: Vital Signs Temp Pulse Resp BP BP Pulse Ox 07/26/17 01:39 98.4 F 103 H 20 122/68 98 07/25/17 21:54 97.9 F 100 H 20 100 07/25/17 21:30 127/89 07/25/17 18:21 113/60 07/25/17 18:11 98.3 F 113 H 18 123/65 123/65 96 07/25/17 10:13 98.1 F 104 H 18 122/67 98 07/25/17 10:12 98.1 F 105 H 18 122/67 99 Intake and Output 07/25/17 07/26/17 07/26/17 21:59 06:59 14:59 Intake Total Balance Intake: Intake, Free Water Other: # Voids Void - Exam Breasts: Present: deferred Cardiovascular: Present: Regular rate Lungs: Present: Clear to auscultation Abdomen: Present: normal appearance, soft Uterus: Present: normal, firm, fundal height below umbilicus Extremities: Present: normal Incision: Present: normal, dry, intact - Labs Labs: Abnormal lab results 07/25/17 Range/Units 11:22 Hgb 7.6 L (10.1-14.3) gm/dl Hct 24.2 L D (30.3-42.9) % Laboratory Tests 07/21/17 07/21/17 07/21/17 21:30 21:30 21:30 WBC 8.5 RBC 3.85 Hgb 10.6 Hct 32.5 MCV 84 MCH 28 MCHC 33 RDW 16.3 H Plt Count 209 Sodium 137 Potassium 4.1 Chloride 101.0 Carbon Dioxide 20 L Anion Gap 20 BUN 6 L Creatinine 0.4 L Estimated GFR > 60 BUN/Creatinine Ratio 15 Glucose 104 H Calcium 8.8 Total Bilirubin 0.20 AST 13 ALT 8 Alkaline Phosphatase 140 H Total Protein 6.8 Albumin 3.6 L Albumin/Globulin Ratio 1.1 RPR Nonreactive Hep Bs Antigen Blood Type Antibody Screen 07/21/17 07/24/17 07/24/17 21:30 10:49 10:51 WBC 8.5 RBC 3.60 L Hgb 10.0 L Hct 30.4 MCV 84 MCH 28 MCHC 33 RDW 16.0 H Plt Count 189 Sodium Potassium Chloride Carbon Dioxide Anion Gap BUN Creatinine Estimated GFR BUN/Creatinine Ratio Glucose Calcium Total Bilirubin AST ALT Alkaline Phosphatase Total Protein Albumin Albumin/Globulin Ratio RPR Hep Bs Antigen Blood Type A POSITIVE A POSITIVE Antibody Screen Negative Negative 07/24/17 07/25/17 07/26/17 10:51 11:22 08:54 WBC RBC Hgb 7.6 L 6.7 L Hct 24.2 L D 20.8 L MCV MCH MCHC RDW Plt Count Sodium Potassium Chloride Carbon Dioxide Anion Gap BUN Creatinine Estimated GFR BUN/Creatinine Ratio Glucose Calcium Total Bilirubin AST ALT Alkaline Phosphatase Total Protein Albumin Albumin/Globulin Ratio RPR Hep Bs Antigen Non-reactive Blood Type Antibody Screen
[2017-07-26 09:31] LABS: Hematocrit 20.8 % (30.3-42.9); Hemoglobin 6.7 gm/dl (10.1-14.3)
[2017-07-26] MEDS: NORCO 5/325 PO PRN ×2 (10:06→17:35)
[2017-07-26] MEDS: FEOSOL PO SCH (10:07)
[2017-07-26] MEDS: PRENATAL VITAMIN PO SCH (10:07)
--- NOTE | 2017-07-26 16:48 | Discharge Summary ---
Providers - Providers Date of Admission: 07/21/17 19:32 Date of discharge: 07/27/17 Attending physician: SLIME LORA Primary care physician: SLIME LORA Hospitalization Reason for admission: induction of labor, IUP at term, other (Oligohydramnios) Delivery: Procedure: section, primary low transverse Episiotomy: none Laceration: none Incision: normal, dry, intact Other procedures: none complications: none Discharge diagnosis: IUP at term delivered [place] baby: male Hospital course: Pt is a 31yo BF EDC 08/01/17; EGA 38 6/7 weeks who presented from [facility] for induction of labor due to Oligohydramnios. She received cervidil followed by pitocin but failed to progress after 3 days of induction. She was therefore delivered by an uncomplicated C Section. By POD #2 she was tolerating a reg diet without nausea or vomiting, ambulating and voiding without difficulty despite a low H/H (6.7/20.8). She will therefore be discharged to home on POD#3 in stable condition. Condition at discharge: Good Disposition: DC-01 TO HOME OR SELFCARE - Discharge Diagnoses (1) 38 weeks gestation of Status: Resolved (2) Morbid obesity Status: Chronic (3) Oligohydramnios without rupture of membranes in third trimester Status: Resolved Qualifiers: Fetus number: single or unspecified fetus Qualified Code(s): O41.03X0 - Oligohydramnios, third trimester, not applicable or unspecified (4) Status post Status: Resolved (5) Acute blood loss anemia Status: Resolved Plan - Discharge Medications Prescriptions: Ferrous Sulfate [Feosol 325 MG tab] 325 mg PO BID #60 tablet HYDROcodone/APAP 5-325 [[place] 5/325] 1 each PO Q6HR PRN #30 tablet PRN Reason: Pain Ibuprofen [Motrin] 800 mg PO Q8HR PRN #30 tablet PRN Reason: Moder Pain Unrelieved By [place] Vit Calc,Iron,Folic [ Vitamins] 1 each PO DAILY #30 tablet - Provider Discharge Summary Activity: routine, no sex for 6 weeks, no heavy lifting 4 weeks, no strenuous exercise Diet: routine Instructions: routine Additional instructions: [] Smoking cessation referral if applicable(refer to patient education folder for contact #) [] Refer to [facility] Booklet Call your doctor immediately for: * Fever > 100.5 * Heavy vaginal bleeding ( >1 pad per hour) * Severe persistent headache * Shortness of breath * Reddened, hot, painful area to leg or breast * Drainage or odor from incision. * Keep incision clean and dry at all times and follow doctor's instructions regarding bathing/showering - Follow up plan Follow up: SLIME LORA MD [Primary Care Provider] - 14 Days
[2017-07-26] MEDS ORDERED: PITOCin/NS 20 UNIT/1000ML DRIP 20,000 MILLIUNITS/1,000 ML BAG IV ONE (18:36)
[2017-07-26] MEDS ORDERED: POLYCILLIN/NS 2 GM/100 ML 2 GM/100 ML BAG IV ONE (18:37)
[2017-07-27] MEDS: MOTRIN PO PRN ×3 (00:33→11:45)
[2017-07-27] MEDS: NORCO 5/325 PO PRN ×3 (00:34→11:45)
[2017-07-27 07:37] LABS: Hematocrit 20.4 % (30.3-42.9); Hemoglobin 6.5 gm/dl (10.1-14.3)
[2017-07-27] MEDS: FEOSOL PO SCH ×2 (09:45→19:11)
[2017-07-27 13:16] VITALS: BP 149/78
[2017-07-27] MEDS ORDERED: Fluarix Quad 2017-2018(36 MOS+ IM ONE (13:25)
== END 2017-07-27 15:40 | disposition home or self-care (01) | DRG 765 ==
LOC: LD 19:32 → OB 07-25 00:20
PROVIDERS: ADMIT Obstetrics & Gynecology; ATTEND Obstetrics & Gynecology
PROC: 10D00Z1 Extraction of Products of Conception, Low, Open Approach (ICD-10-PCS; principal; 2017-07-24)
PROC: 3E0234Z Introduction of Serum, Toxoid and Vaccine into Muscle, Percutaneous Approach (ICD-10-PCS; 2017-07-27)
DX: O41.03X0 Oligohydramnios, third trimester, not applicable or unspecified (principal); Z68.42 Body mass index [BMI] 45.0-49.9, adult; D62 Acute posthemorrhagic anemia; Z3A.38 38 weeks gestation of pregnancy; E66.01 Morbid (severe) obesity due to excess calories; Z37.0 Single live birth; O99.214 Obesity complicating childbirth; O34.13 Maternal care for benign tumor of corpus uteri, third trimester; O76 Abnormality in fetal heart rate and rhythm complicating labor and delivery; Z23 Encounter for immunization; O99.03 Anemia complicating the puerperium; O61.0 Failed medical induction of labor; O62.2 Other uterine inertia; D25.9 Leiomyoma of uterus, unspecified; O61.9 Failed induction of labor, unspecified
CPT/HCPCS: 36415; 80053; 85014; 85018; 85027; 86592; 86706; 86850; 86900; 86901; 90471; 90686; 90715; 99211; C1765; C9250; G0008; G0463; J0290; J0690; J1885; J2274; J2370; J2405; J2590; J2765; J3010; J7030; J7120

== ENCOUNTER 2018-02-01 10:36 | Outpatient (CLI) | payer OTHER ==
--- NOTE | 2018-02-01 11:59 | Ultrasound Report ---
BILATERAL DIGITAL DIAGNOSTIC MAMMOGRAM with CAD and RIGHT BREAST ULTRASOUND: 02/01/18 CLINICAL: 32-year-old with a palpable right breast lump. She delivered a baby six months ago and recently felt a lump in her right breast. COMPARISON:None. These are baseline studies. FINDINGS: Ultrasound of right breast was performed in the area where she feels a lump. Ultrasound demonstrates an irregular solid relatively hypoechoic mass in the subareolar area at 1 o'clock. It measures 8 x 5 x 6 mm. I scanned her myself and felt the lump. I then determined that a mammogram should be performed. Routine views demonstrate relatively fatty breasts. No mass, architectural distortion or suspicious calcifications. No mammographic abnormality is identified at the right subareolar palpable marker. IMPRESSION: An irregular palpable 8mm right subareolar solid mass at 1 o'clock. The mammogram is negative and the mass is only identified on ultrasound. BI-RADS CATEGORY: 4--Suspicious RECOMMENDATION: Ultrasound guided needle core biopsy of the right breast mass. I discussed the findings and the recommendation for needle core biopsy of the right breast with the patient at the time of the examination. ACR BI-RADS MAMMOGRAPHIC CODES: 0 = Needs additional imaging evaluation; 1 = Negative; 2 = Benign; 3 = Probably benign; 4 = Suspicious; 5 = Malignant; 6 = Known biopsy-proven malignancy COMMENT: 1. Dense breast tissue, i.e., adenosis, fibrocystic changes, etc., may obscure an underlying neoplasm. 2. Approximately 10% of cancers are not detected with mammography. 3. A negative mammography report should not delay biopsy if a clinically suspicious mass is present. COMMENT: Patient follow-up letters are generated by our [employer] application.
== END 2018-02-01 10:37 | disposition home or self-care (01) ==
LOC: SPVWC 10:36
PROVIDERS: ATTEND Advanced Practice Midwife
DX: N63.41 Unspecified lump in right breast, subareolar (principal); N63.12 Unspecified lump in the right breast, upper inner quadrant; E66.01 Morbid (severe) obesity due to excess calories; J45.909 Unspecified asthma, uncomplicated; E66.9 Obesity, unspecified
CPT/HCPCS: 77066

== ENCOUNTER 2018-02-09 13:04 | Outpatient (CLI) | payer OTHER ==
--- NOTE | 2018-02-09 14:34 | Mammography Report ---
RIGHT DIGITAL DIAGNOSTIC MAMMOGRAM: 02/09/18 13:04:00 CLINICAL: For clip placement immediately status post ultrasound biopsy. COMPARISON:02/01/18 FINDINGS: A biopsy clip is now identified in the subareolar area and correlates with a palpable subareolar mass which was not identified mammographically. IMPRESSION: Concordant clip placement status post ultrasound biopsy. BI-RADS CATEGORY: 4--Suspicious Pathology pending.
--- NOTE | 2018-02-09 16:29 | Ultrasound Report ---
ULTRASOUND GUIDED NEEDLE CORE BIOPSY LEFT BREAST WITH CLIP PLACEMENT: 02/09/18 CLINICAL: A palpable subareolar left breast mass. According to the patient, it is smaller and less painful. COMPARISON :02/01/18 FINDINGS: The procedure was explained to the patient and informed consent was obtained. Ultrasound demonstrated a slightly irregular subareolar hypoechoic mass contiguous to the skin at 1 o'clock. I marked the breast with a felt tip marker and a time out was called. The skin was prepped with Betadine and anesthetized with 1% lidocaine. Needle core biopsy was performed through a tiny dermatotomy using ultrasound guidance, 2% lidocaine with epinephrine for deep anesthesia and a 14-gauge Achieve biopsy device. Three cores were obtained and placed in formalin. A clip was deployed within the mass. The patient tolerated the procedure well and there were no apparent complications. Hemostasis was achieved with minimal pressure and a sterile dressing was applied. A two view mammogram demonstrated concordant placement of the clip. She left the department in good condition and was given instructions for wound care and followup. IMPRESSION: Uncomplicated ultrasound guided needle core biopsy with clip placement right breast.
== END 2018-02-09 13:05 | disposition home or self-care (01) ==
LOC: SPVWC 13:04
PROVIDERS: ATTEND Advanced Practice Midwife
DX: N61.0 Mastitis without abscess (principal); E66.01 Morbid (severe) obesity due to excess calories; Z68.42 Body mass index [BMI] 45.0-49.9, adult; Z79.899 Other long term (current) drug therapy; Z72.89 Other problems related to lifestyle; Z98.891 History of uterine scar from previous surgery
CPT/HCPCS: 88305; 88342; A4648

== ENCOUNTER 2020-10-24 14:18 | Outpatient (CLI) | payer BC | END 2020-10-24 14:19 | disposition home or self-care (01) | LOC: SPVWC 14:18 | PROVIDERS: ATTEND Nurse Practitioner Gerontology | DX: N64.59 Other signs and symptoms in breast (principal) ==

== ENCOUNTER 2020-11-20 13:36 | Outpatient (CLI) | payer BC ==
--- NOTE | 2020-11-20 16:38 | Ultrasound Report ---
Procedure: Ultrasound-guided right biopsy, 11/20/2020 Clinical information/indication: Right breast mass. Comparison: Diagnostic mammogram and ultrasound, 10/24/2020 Procedure: The benefits, indications and risks were discussed with the patient including but not limi chiara to bleeding, infection, hematoma formation, and inadequate tissue sampling. The patient agreed to proceed with both verbal and written consent. A timeout procedure was performed using 2 patient iden tifiers. The breast was prepped and draped in the usual sterile fashion. Lidocaine 1% with and without epineph rine were used for local anesthesia. Under direct ultrasound guidance, multiple core samples were obt ained of the oval superficial mass at the 1:00 periareolar location. A biopsy marker was then placed . Biopsy device was removed and hemostasis achieved with manual pressure. A sterile dressing was appl ied to the skin. The patient tolerated the procedure without difficulty. No complications were encountered. Postbiopsy instructions were discussed with the patient and given in writing. Specimens were sent to pathology . IMPRESSION: 1. Technically successful right breast biopsy. Biopsy results are pending and will be reported in an addendum. Signer Name: Sarai Goldsmith MD Signed: 11/20/2020 4:33 PM Workstation Name: [id number]
--- NOTE | 2020-11-20 16:40 | Mammography Report ---
DIGITAL DIAGNOSTIC MAMMOGRAM , 11/20/2020 CLINICAL INFORMATION / INDICATION: Postbiopsy mammogram obtained after ultrasound-guided biopsy to do cument clip placement. TECHNIQUE: Digital right mammographic imaging was performed. This examination was interpreted with the benefit of Computer-aided Detection analysis. COMPARISON: Ultrasound-guided biopsy, 11/20/2020. Right diagnostic mammogram and ultrasound, 10/24/2020 FINDINGS: Breast Density: There are scattered areas of fibroglandular density. Postbiopsy mammogram confirms satisfactory positioning of the biopsy clip at the 1:00 subareolar. IMPRESSION: No mammographic evidence of malignancy. Follow up recommendation: No recall. Post biopsy imaging. A "normal" or negative report should not discourage follow up or biopsy of a clinically significant f inding. A written summary of these findings will be mailed to the patient. The patient will be entered into a mammography reporting system which will generate a reminder letter for the patient's next appointmen t at the appropriate interval. According to the [employer], yearly mammograms are recommended starting at age 40 and continuing as long as a woman is in good health. Breast MRI is recommended for women with an ale roximately 20-25% or greater lifetime risk of breast cancer, including women with a strong family his tory of breast or ovarian cancer and women who have been treated for Hodgkin's disease. Signer Name: Sarai Goldsmith MD Signed: 11/20/2020 4:36 PM Workstation Name: [id number]
== END 2020-11-20 13:37 | disposition home or self-care (01) ==
LOC: SPVWC 13:36
PROVIDERS: ATTEND Surgery
DX: N63.10 Unspecified lump in the right breast, unspecified quadrant (principal); R92.8 Other abnormal and inconclusive findings on diagnostic imaging of breast; N64.89 Other specified disorders of breast; J45.909 Unspecified asthma, uncomplicated; D64.9 Anemia, unspecified; E66.9 Obesity, unspecified; Z79.899 Other long term (current) drug therapy; Z87.01 Personal history of pneumonia (recurrent); Z98.891 History of uterine scar from previous surgery; Z72.89 Other problems related to lifestyle; Z83.3 Family history of diabetes mellitus; Z80.8 Family history of malignant neoplasm of other organs or systems; Z82.49 Family history of ischemic heart disease and other diseases of the circulatory system
CPT/HCPCS: 88305; 88341; 88342